=== PATIENT | male | born 1945 | race Caucasian/White ===

== ENCOUNTER 2017-08-07 11:31 | Day surgery (SDC) | payer MEDICARE, BC ==
[~2017-08-07] VITALS: Ht 175.3 cm; Wt 75.7 kg
[2017-08-07 12:51] VITALS: BP 153/90; PULSE 65; TEMP 97.9
[2017-08-07] MEDS ORDERED: IMDUR 60MG60 MG/TAB PO (13:53)
[2017-08-07] MEDS ORDERED: ZETIA 10MG TAB10 MG PO (13:54)
[2017-08-07] MEDS ORDERED: COZAAR 50MG50 MG/TAB PO (13:55)
[2017-08-07] MEDS ORDERED: RANEXA 500MG T500 MG PO (13:55)
[2017-08-07] MEDS ORDERED: ASPIRIN 81M81 MG/TA2 PO (13:56)
[2017-08-07] MEDS ORDERED: MOTRIN 200200 MG/TAB PO (13:58)
[2017-08-07] MEDS ORDERED: MUCINEX1200 MG PO (13:58)
[2017-08-07] MEDS ORDERED: NITROSTAT0.4 MG/TAB SL (14:00)
[2017-08-07 16:05] VITALS: BP 100/63; PULSE 61
[2017-08-07 16:20] VITALS: BP 118/77; PULSE 74
[2017-08-07 16:35] VITALS: BP 118/67; PULSE 76
[2017-08-07 16:50] VITALS: BP 110/69; PULSE 61
[2017-08-07 17:29] VITALS: BP 100/63; PULSE 59; TEMP 98.4
== END 2017-08-07 17:20 | disposition home or self-care (01) ==
LOC: SDCO 11:31
DX: N20.1 Calculus of ureter (principal); E78.00 Pure hypercholesterolemia, unspecified; I10 Essential (primary) hypertension; I25.10 Atherosclerotic heart disease of native coronary artery without angina pectoris; I48.91 Unspecified atrial fibrillation; J42 Unspecified chronic bronchitis; F17.210 Nicotine dependence, cigarettes, uncomplicated; Z95.818 Presence of other cardiac implants and grafts; Z82.49 Family history of ischemic heart disease and other diseases of the circulatory system; Z83.3 Family history of diabetes mellitus
CPT/HCPCS: C1726; C1769; J0690; J1100; J2405; J2704; J3010; J7120; Q9967